=== PATIENT | male | born 1970 | race Caucasian/White ===

== ENCOUNTER 2021-08-02 09:56 | Inpatient (IN) | payer OTHER, SELFPAY ==
[2021-08-02] VITALS (15 sets, daily range): BP systolic 141–258; BP diastolic 96–164; PULSE 69–107; RESP 16–20; TEMP 36–36.9; O2SAT 97–99; BMI 24.9; BMI 23.9
--- NOTE | 2021-08-02 10:36 | EKG12_ITS ---
Test Reason : Blood Pressure : / mmHG Vent. Rate : 100 BPM Atrial Rate : 100 BPM P-R Int : 172 ms QRS Dur : 090 ms QT Int : 392 ms P-R-T Axes : 045 030 110 degrees QTc Int : 505 ms Normal sinus rhythm Left ventricular hypertrophy with repolarization abnormality Prolonged QT Abnormal ECG Confirmed by VIPUL PHILLIPS, SEPIDEH ([id number]), international editorial producer JOVANY JACOBS ([id number]) on 08/04/2021 9:22:35 AM Referred By: LISET Confirmed By:SEPIDEH MATTHEW MD
--- NOTE | 2021-08-02 10:37 | EX.ED.DYSGE1 ---
HPI History of Present Illness Chief Complaint: Med Refill Informant: patient Narrative Narrative: Male with no known medical history but recent diagnosis of hypertension from urgent care as well as tobacco abuse presenting for medication refill. Patient states in June she saw urgent care for dyspnea on exertion. At that time he was given antibiotics, steroids and started on lisinopril. He ran out of the lisinopril 2 weeks ago and has been trying to get into a primary care doctor. Does not have insurance and he is facing difficulties with this. He notes that since has been off lisinopril his symptoms have returned including chest pressure when laying flat and dyspnea on exertion. He denies any swelling of his legs. He does note decreased urination since being off of the lisinopril. He denies any chest pain at this time. He denies any change in his bowel habits. No black or blood in his stool. Never had a cardiac evaluation before. No other complaints at this time. PFSH PFSH Medical History Hypertension Smoker Home Medications lisinopril 10 mg PO DAILY 08/02/21 [History Last Taken 07/12/21] Allergy/AdvReac Type Severity Reaction Status Date / Time No Known Allergies Allergy Verified 08/02/21 10:02 Social History Smoking Status: Current every day smoker tobacco type: cigarettes ROS ROS ED Constitutional Constitutional ED: Reports weight loss; Denies chills or fever(s) Eyes Eyes: Denies change in vision ENT ENT ED: Denies rhinorrhea or sore throat Cardiovascular Cardiovascular: Reports chest pain; Denies palpitations Respiratory/Chest Respiratory/Chest: Reports dyspnea and dyspnea on exertion; Denies cough Gastrointestinal Gastrointestinal: Denies abdominal pain, nausea or vomiting Genitourinary Genitourinary ED: Denies dysuria or hematuria Musculoskeletal Musculoskeletal: Denies arthralgias or myalgias Integumentary Denies rash Neurologic Neurologic: Denies headache(s), paresthesias or weakness Psychiatric Psychiatric: Denies depression EXAM Physical Exam Const Vital Signs: 08/02/21 09:58 08/02/21 10:12 08/02/21 11:03 Temperature 96.8 F L Temperature Source Temporal Pulse Rate 107 H 76 Respiratory Rate 16 16 Respiratory Effort Normal Respiratory Pattern Normal Blood Pressure 258/164 H 214/136 H Blood Pressure Mean 195 162 Pulse Ox 97 99 Oxygen Delivery Method Room Air Room Air 08/02/21 11:45 08/02/21 12:24 Temperature Temperature Source Pulse Rate 69 71 Respiratory Rate 16 Respiratory Effort Respiratory Pattern Blood Pressure 218/146 H 207/138 H Blood Pressure Mean 170 161 Pulse Ox 98 Oxygen Delivery Method Positive well nourished and well developed General Appearance ED: well developed, NAD and pallor HEENT Reports moist mucous membranes Negative for trauma Eyes PERRL and EOMs intact bilaterally Neck supple Chest Wall inspection of chest normal Resp normal respiratory effort and clear to auscultation bilaterally Auscultation: Negative for rales, rhonchi or wheezes Cardio regular rhythm and no murmurs Rate: tachycardic GI normal to inspection, nondistended, normoactive bowel sounds and non-tender Palpation: soft Extremity normal to inspection Extremity Narrative: 2+ PT pulses General Extremety ED: Negative for edema or tenderness General Extremity: Negative for edema Neuro oriented x3 and CN's II-XII intact bilaterally Sensorium / Orientation: alert Motor Exam: strength 5/5 throughout Psych mental status grossly normal Skin no rashes or lesions noted General Skin Exam: pallor MDM MDM MDM Narrative Medical decision making narrative: Patient evaluated for dyspnea on exertion and orthopnea. He is significantly hypertensive upon arrival. He is not having any chest pain at this time. He has been off of lisinopril for the past 2 weeks. Patient has abnormal EKG however there is no prior to compare to. Lab work is remarkable for hemoglobin 11.4 with a microcytic anemia. Patient denies any black or blood in the stool. He is not on any thinners. He also has an elevated creatinine of 2.27. Is not clear what his baseline is. His troponin is 147 and his BNP is 905. Chest x-ray shows cardiomegaly and hyperinflation. Patient is not requiring oxygen. He is given 2 doses of 10 mg IV labetalol with gradual improvement of his blood pressure. Goal is to lower the blood pressure no more than 25%. Patient is given aspirin in the ER. He does not have any active chest pain. Case is discussed with cardiology on-call, Dr. Peace, who agrees with admission for further evaluation of his hypertension and elevated BNP but does not think this is an NSTEMI. Feels that the elevated troponin is secondary to the blood pressure more than anything. Recommend starting the patient on 10 mg Norvasc and 50 mg twice daily metoprolol for further blood pressure control. Given the patient is mentating appropriately and blood pressure is improving I feel that he is stable for the PCU and does not require the ICU at this time. Patient is agreeable with this plan of care. He is admitted in stable condition. Lab Data Attestation: I reviewed the patient's lab results. Labs: Laboratory Results - last 24 hr 08/02/21 08/02/21 08/02/21 10:46 10:46 10:46 WBC 11.0 RBC 4.32 L Hgb 11.4 L Hct 33.2 L MCV 76.9 L MCH 26.4 L MCHC 34.3 RDW Std Deviation 41.4 RDW Coeff of Hans 15.1 H Plt Count 152 MPV 9.8 Immature Gran % (Auto) 0.400 Neut % (Auto) 84.2 H Lymph % (Auto) 8.0 L [place] % (Auto) 6.0 Eos % (Auto) 1.0 Baso % (Auto) 0.4 Absolute Neuts (auto) 9.3 H Absolute Lymphs (auto) 0.88 Nucleated RBC % 0 Sodium 134 L Potassium 3.1 L Chloride 100 Carbon Dioxide 27.0 Anion Gap 7 BUN 48 H Creatinine 2.27 H Estim Creat Clear Calc 31.87 Est GFR (MDRD) Af Amer 39 L Est GFR (MDRD) Non-Af 32 L BUN/Creatinine Ratio 21.1 H Glucose 105 Calcium 8.7 Troponin I High Sens 147 H* B-Natriuretic Peptide 904.8 H Radiography Chest X-Ray - ED: 1 View, Read by ED Physician, Read by Radiologist and Cardiomegaly Diagnostic Testing: Clinical Impression(s) from Imaging Studies Chest X-Ray 08/02/21 10:41 IMPRESSION: Hyperinflation. Findings suggestive of bibasilar scarring. Mild cardiomegaly. Electronically Signed: Leonel Mcneal MD at 10:57 EDT , Rhythm Strip Rhythm Strip: Sinus Rhythm Rate: 100 Ectopy: None EKG Initial EKG: Attestation: I personally reviewed and interpreted this EKG as follows: Interpretation: Sinus Rhythm Comments: Normal sinus rhythm at a rate of 100 Normal axis Normal NV and QRS intervals QTC prolonged at 505 LVH with repolarization abnormalities present T wave inversions in lateral leads No prior EKG available for comparison Discharge Plan Dx/Rx/DC Orders Clinical Impression: Hypertensive emergency, Elevated troponin, FELI (acute kidney injury) Disposition Disposition: Acute Care Hospital [facility]
--- NOTE | 2021-08-02 10:41 | RAD_ITS ---
STUDY: X-RAY CHEST REASON FOR EXAM: Male, 50 years old. Sob TECHNIQUE: Single AP portable view of the chest. COMPARISON: None. FINDINGS: EKG electrodes are seen. Hyperinflation. Increased markings at the lung bases suggestive of bibasilar scarring. There is no demonstrated pleural abnormality. There is mild cardiac enlargement. Normal mediastinum and soo. Normal visualized pulmonary arteries. There is atherosclerotic tortuosity of the aortic arch and descending thoracic aorta. There are diffuse degenerative changes of the visualized thoracic spine. Normal visualized ribs, clavicles, and shoulders. There is no demonstrated abnormality of the visualized soft tissue structures of the upper abdomen. RAD/Chest 1 View (Portable) IMPRESSION: Hyperinflation. Findings suggestive of bibasilar scarring. Mild cardiomegaly. Electronically Signed: Leonel Mcneal MD at 10:57 EDT ,
[2021-08-02] MEDS: Labetalol (Prefilled) 20 MG/4 ML 10 MG IV ×2 (10:58→11:46)
[2021-08-02 11:07] LABS: Absolute Lymphocyte Count 0.88 X10^3/uL (0.83-4.51); Absolute Neutrophil Count 9.3 X10^3/uL (2.0-7.7); Basophil# 0.04 X10^3/uL; Basophil% 0.4 % (0-1); Eosinophil# 0.11 X10^3/uL; Hematocrit 33.2 % (40-54); Hemoglobin 11.4 g/dL (13.0-16.5); Lymphocyte # 0.88 X10^3/ul (0.83-4.51); Mean Corp Hgb Conc 34.3 g/dL (32-36); Mean Corpuscular Hgb 26.4 pg (27.0-32.0); Mean Corpuscular Volume 76.9 fL (80-94); Mean Platelet Vol. 9.8 fl (6.2-12.0); Monocyte# 0.66 X10^3/uL; NRBC Flagged by Analyzer 0 % (0-5); Neutrophil # 9.31 X10^3/uL (2.7-7.7); Neutrophil % 84.2 % (47-70); Platelet Count 152 K/mm3 (150-450); RBC Distribution Width CV 15.1 % (11.6-14.6); RBC Distribution Width SD 41.4 fl (35.1-43.9); Red Blood Count 4.32 M/mm3 (4.6-6.2)
[2021-08-02 11:33] LABS: Anion Gap 7 (5-15); BUN 48 mg/dL (7-18); BUN/Creat Ratio 21.1 RATIO (10-20); Calcium,Total 8.7 mg/dL (8.5-10.1); Chloride 100 mmol/L (98-107); Creatinine, Serum 2.27 mg/dL (0.70-1.30); EST Glomerular Filtration Rate 32 mL/min (>60); Est Glom Filt Rate - Afr Amer 39 mL/min (>60); Estimated Creatinine Clearance 31.87 ml/min; Glucose 105 mg/dL (74-106); Potassium 3.1 mmol/L (3.5-5.1); Sodium Level 134 mmol/L (136-145); Troponin-I HS 147 pg/mL (3.0-78.0)
[2021-08-02 11:34] LABS: BNP,B-Type NATRIURETIC PEPTIDE 904.8 pg/mL (0-100)
[2021-08-02] MEDS: Aspirin 325 MG Tablet PO (11:51)
[2021-08-02] MEDS: 0.9% Normal Saline 1,000 ML 150 ML IV (12:14)
--- NOTE | 2021-08-02 12:21 | HP.PCM.HOS_ITS ---
HPI - General HPI Narrative INDY BARGER, is a 50 M with a PMH of hypertension who presents via the ED for medication refill. He started having shortness of breath some months ago, and went to an urgent care. He was given lisinopril and some steroids and says his shortness of breath improved. He run out of lisinopril and says his shortness of breath recurred, and he also had orthopnea, so he decided to come in to the ED for medication refill. He denied any chest pain, palpitations, dizziness, abdominal pain, nausea, vomiting or diarrhea. He hasnt seen a physician in ~ 20 years ago. Review of systems is otherwise negative. Vitals in [facility] ED were bp of 214/136, CO of 76, RR of 16 and he was saturating at 99% on room air. CBC showed Hb of 11.4, wbc of 11 and platelets of 152. Chemistry showed sodium of 134, potassium of 3.1 and Cr of 2.27; no baseline known. Initial troponin was 147 and BNP was 904.8. EKG showed evidence of LVH. He is being admitted to be managed for hypertensive urgency. He was given IV labetalol in the ED, and started on PO amlodipine and PO metoprolol per cardiology recommendations. [facility] Medical History Hypertension Home Medications lisinopril 10 mg PO DAILY 08/02/21 [History Last Taken Unknown] Allergy/AdvReac Type Severity Reaction Status Date / Time No Known Allergies Allergy Verified 08/02/21 10:02 Social History Smoking Status: Current every day smoker tobacco type: cigarettes ROS Constitutional Constitutional: Denies change in weight, chills, fatigue, fever(s), malaise, weakness or other Eyes Eyes: Denies change in vision or double vision ENT HEENT: Denies headache(s) Cardiovascular Cardiovascular: Reports dyspnea on exertion, orthopnea and paroxysmal nocturnal dyspnea; Denies chest pain, edema, lightheadedness, palpitations, rapid heart rate or syncope Respiratory/Chest Respiratory/Chest: Reports dyspnea, shortness of breath at rest and shortness of breath with exertion; Denies cough, hemoptysis or wheezing Gastrointestinal Gastrointestinal: Denies abdominal pain, constipation, nausea or vomiting Genitourinary Genitourinary: Denies burning urination or dysuria Neurologic Neurologic: Denies confusion, focal weakness, headache(s), seizure-like activity or syncope Vital Signs Vital Signs Vital Signs: 08/02/21 09:58 08/02/21 10:12 08/02/21 11:03 Temperature 96.8 F L Temperature Source Temporal Pulse Rate 107 H 76 Respiratory Rate 16 16 Respiratory Effort Normal Respiratory Pattern Normal Blood Pressure 258/164 H 214/136 H Blood Pressure Mean 195 162 Pulse Ox 97 99 Oxygen Delivery Method Room Air Room Air Weight Weight: 145 lb Body Mass Index (BMI) 24.9 Physical Exam Const alert, oriented x3 and no apparent distress General Appearance: cooperative HEENT normocephalic, hearing grossly normal bilaterally and moist oral mucous membranes Eyes PERRL, EOMs intact bilaterally and conjunctivae normal Neck no lymphadenopathy, supple and no JVD Resp Resp Narrative: diminished breath sounds bibasally, no wheezes or crackles. on room air Cardio regular rate, regular rhythm, S1 normal heart sound, S2 normal heart sound and no murmurs GI normal to inspection, nondistended, normoactive bowel sounds, soft to palpation and non-tender Extremity normal to inspection, full ROM and no clubbing, cyanosis or edema Peripheral Pulses: Yes pulses 2+ throughout Skin no rashes or lesions noted Neuro oriented x3, CN's II-XII intact bilaterally and moves all extremities Sensorium / Orientation: awake and alert Psych affect normal Results Lab / Micro Data Result Diagrams: 08/02/21 10:46 08/02/21 10:46 Labs: Laboratory Results - last 24 hr 08/02/21 10:46: WBC 11.0, RBC 4.32 L, Hgb 11.4 L, Hct 33.2 L, MCV 76.9 L, MCH 26.4 L, MCHC 34.3, RDW Std Deviation 41.4, RDW Coeff of Hans 15.1 H, Plt Count 152, MPV 9.8, Immature Gran % (Auto) 0.400, Neut % (Auto) 84.2 H, Lymph % (Auto) 8.0 L, [place] % (Auto) 6.0, Eos % (Auto) 1.0, Baso % (Auto) 0.4, Absolute Neuts (auto) 9.3 H, Absolute Lymphs (auto) 0.88, Nucleated RBC % 0 08/02/21 10:46: Sodium 134 L, Potassium 3.1 L, Chloride 100, Carbon Dioxide 27.0, Anion Gap 7, BUN 48 H, Creatinine 2.27 H, Estim Creat Clear Calc 31.87, Est GFR (MDRD) Af Amer 39 L, Est GFR (MDRD) Non-Af 32 L, BUN/Creatinine Ratio 21.1 H, Glucose 105, Calcium 8.7, Troponin I High Sens 147 H* 08/02/21 10:46: B-Natriuretic Peptide 904.8 H Radiology Impression Chest X-Ray 08/02/21 10:41 IMPRESSION: Hyperinflation. Findings suggestive of bibasilar scarring. Mild cardiomegaly. Electronically Signed: Leonel Mcneal MD at 10:57 EDT , Assessment & Plan Assessment/Plan (1) Hypertensive emergency: (2) Elevated troponin: (3) FELI (acute kidney injury): PLAN: #HYpertensive emergency * Blood pressure was markedly elevated on admission. Was initially 258/164 and trended down gradually to 207/138 at time of admission. * Appears patient has been hypertensive for a long time but he does not see a doctor and has not seen one for about 20 years according to him. * Was put on IV labetalol in the ED and blood pressure came down slightly. Started on p.o. amlodipine and metoprolol * BNP and troponin are both elevated which would likely be explained by the hypertensive emergency. * EKG showed evidence of left ventricular hypertrophy. * Cardiology consulted. * Admit to PCU with stepdown * IV hydralazine as needed. * 2D echo. * Check lipid panel and A1c as well. * #FELI: * Creatinine is 2.27. Baseline is not known. * Hold off on hydration with IV fluids due to markedly elevated BNP, until echo is reviewed no EF. * #Elevated troponin: * Likely due to hypertensive emergency. * EKG showed no acute ST changes and patient currently denies any chest pain. Cardiology consulted. * #Hypokalemia: Potassium is 3.1. Will replace and trend. DVT prophylaxis: Lovenox CODE STATUS: Full code * Patient counseled extensively about different types of CODE STATUS including full code, DNR CCA and DNR CCA. Patient elects to be full code. * Total [id number] time 16 minutes. Charges/Coding Visit Charges Inpatient E&M: 45066 Init Hosp L3 Procedures Hospitalists Procedures: 70113 Advncd Care Plan 30 Min
--- NOTE | 2021-08-02 12:29 | CM.ED ---
ISABEL Note: Referral Source:Case Find Referral Reason: No insurance and no PCP ISABEL met with patient and provided him with [facility] Healthcare Directory and Financial Assistance packet. No other needs identified at this time. SW remains available. Plan: Resources provided Caroline Machado
[2021-08-02] MEDS: amLODIPine 10 MG Tablet PO (12:31)
[2021-08-02] MEDS: Metoprolol Tartrate 25 MG Tablet 50 MG PO (12:39)
--- NOTE | 2021-08-02 13:21 | ECHOD_ITS ---
Reason For Study: HTN Procedure This was a 2D Doppler, Color Flow transthoracic echocardiogram. Myocardial strain analysis was performed in this exam to aid in the assessment of cardiac function. Exam performed portable in patient room. Left Ventricle Normal LV size. Severe concentric left ventricular hypertrophy. Left ventricular systolic function is lower limits of normal. The estimated ejection fraction is 45 %. Right Ventricle Normal RV size. Normal systolic function. Atria The left atrium is mildly enlarged. Normal right atrium. Mitral Valve Normal mitral valve. Tricuspid Valve Normal tricuspid valve. Aortic Valve Trisinus/trileaflet aortic valve. Mild (1+) aortic valve insufficiency. Pulmonic Valve Normal pulmonic valve. Great Vessels Mild to moderately dilated aortic root. The pulmonary artery is normal size. Normal inferior vena cava. Pericardium/Pleural No pericardial effusion. MMode/2D Measurements & Calculations LVIDd: 4.5 cm IVSd: 2.2 cm Ao root diam: 4.3 cm LVIDs: 3.5 cm LVPWd: 2.0 cm RVDd: 3.7 cm FS: 22.1 % LAV(MOD-bp): 55.7 ml LVAd ap4: 26.1 cm2 SV(MOD-sp4): 33.4 ml LAV(MOD-bp) Indexed: 32.7 ml/m2 LVLd ap4: 8.0 cm LAV(MOD-sp2): 46.3 ml EDV(MOD-sp4): 70.2 ml LAV(MOD-sp4): 65.1 ml EDV(sp4-el): 71.9 ml LVAs ap4: 15.8 cm2 LVLs ap4: 6.2 cm ESV(MOD-sp4): 36.8 ml ESV(sp4-el): 33.8 ml EF(MOD-sp4): 47.6 % EF(sp4-el): 52.9 % SV(sp4-el): 38.0 ml LA A4 area: 21.2 cm2 LA dimension(2D): 3.5 cm RA A4 area: 15.0 cm2 Doppler Measurements & Calculations MV A max ricky: 77.2 cm/sec Lat Peak E' Ricky: 3.0 cm/sec Med Peak E' Ricky: 4.3 cm/sec AI max ricky: 378.5 cm/sec LV V1 max: 136.9 cm/sec AI max P.4 mmHg LV V1 max P.5 mmHg AI dec slope: 233.4 cm/sec2 AI P1/2t: 475.0 msec ECHO/Echo Complete Interpretation Summary Normal LV size. Severe concentric left ventricular hypertrophy. Left ventricular systolic function is lower limits of normal. The estimated ejection fraction is 45 %. Mild to moderately dilated aortic root. Mild (1+) aortic valve insufficiency. Apical sparing noted cannot exclude amyloid. The global longitudinal strain is moderately abnormal. The global longitudinal strain = -12.2% (abnormal). Ordering Physician: Yolanda Armstrong Performed By: Cassi Becker RCS
[2021-08-02 13:57] LABS: Troponin-I HS 161 pg/mL (3.0-78.0)
[2021-08-02] MEDS: hydrALAZINE 20 MG/ML Vial 10 MG IV (14:05)
--- NOTE | 2021-08-02 14:19 | PCM.CONS.C ---
Assessment & Plan Assessment/Plan (1) Hypertensive emergency: PLAN: He does present with a hypertensive emergency. I would recommend that we aggressively treat his blood pressure adjusting for his impairment in renal function. His low potassium as well as the creatinine level makes me want to exclude an adrenal adenoma or renal artery stenosis. Would recommend that we obtain renin aldosterone levels Plasma metanephrines Renal ultrasound Aggressive BP management with amlodipine 10 mg a day Metoprolol 100 mg twice a day Clonidine 0.1 mg 3 times a day An echocardiogram should be performed to assess his ventricular function and look for wall thickness I have discussed with him the importance of medication compliance. (2) Elevated troponin: PLAN: He does have mildly elevated troponin but I suspect the above is secondary to the marked hypertension. May consider stress testing at some point when blood pressure is under much better control. HPI Consult Data Date of Consult: 08/02/21 HPI Narrative HPI Narrative: INDY BARGER, is a 50 M who presents with a PMH of hypertension who presents to the emergency room for medication refill. He had been having some shortness of breath over the last few months and went to an urgent care for evaluation. He was treated with lisinopril and steroids with some improvement. He apparently ran out of his lisinopril and the shortness of breath recurred. He decided to come to the emergency room for refill. He specifically denies any chest pain or palpitations dizziness abdominal discomfort nausea vomiting or diaphoresis. He has sound physicians on purpose. In the emergency room he was noted to have a markedly elevated blood pressure of 214/136 bpm with a pulse rate of 76 bpm. His laboratory tests were significant for hypokalemia, mildly elevated troponin as well as natruretic peptide level. EKG demonstrated normal sinus rhythm with left ventricle hypertrophy and repolarization changes. [facility] Medical History Hypertension Smoker Home Medications lisinopril 10 mg PO DAILY 08/02/21 [History Last Taken 07/12/21] Allergy/AdvReac Type Severity Reaction Status Date / Time No Known Allergies Allergy Verified 08/02/21 10:02 Social History Smoking Status: Current every day smoker tobacco type: cigarettes ROS Constitutional Constitutional: Denies fever(s) or weight loss Eyes Eyes: Reports systems reviewed and no addt'l complaints, except as documented ENT HEENT: Reports systems reviewed and no addt'l complaints, except as documented Cardiovascular Cardiovascular: Denies chest pain at rest, chest pain with activity, dyspnea at rest, dyspnea on exertion, edema, palpitations or paroxysmal nocturnal dyspnea Respiratory/Chest Respiratory/Chest: Reports dyspnea on exertion; Denies productive cough, shortness of breath at rest or shortness of breath with exertion Gastrointestinal Gastrointestinal: Denies change in bowel habits, nausea, vomiting or weight changes Genitourinary Genitourinary: Denies difficulty urinating Musculoskeletal Musculoskeletal: Denies joint stiffness or muscle weakness Integumentary Integumentary: Denies lesions Neurologic Neurologic: Denies dizziness or syncope Psychiatric Psychiatric: Denies anxiety Endocrine Endocrinology: Denies excessive sweating or fatigue Hematologic/Lymphatic Hematologic/Lymphatic: Denies anemia Allergic/Immunologic Allergic/Immunologic: Denies seasonal rhinorrhea Physical Exam Const alert, oriented x3 and no apparent distress General Appearance: cooperative HEENT hearing grossly normal bilaterally Head and Scalp: atraumatic Eyes EOMs intact bilaterally Neck General: normal visual inspection Chest inspection of chest normal and palpation of chest normal Resp normal respiratory effort Auscultation: clear to auscultation bilaterally Cardio regular rate, regular rhythm, S1 normal heart sound and S2 normal heart sound Jugular Venous Distention: JVD GI normal to inspection, nondistended, normoactive bowel sounds Extremity normal capillary refill and no pedal edema Peripheral Pulses: Yes pulses 2+ throughout and femoral pulses present Skin no rashes or lesions noted Neuro oriented x3 and CN's II-XII intact bilaterally Psych Appearance: grossly normal and appropriate Risk Stratification Risk Stratification Applicable: No Objective Data Vital Signs: Vital Signs Temp Pulse Resp BP Pulse Ox 97.2 F L 82 20 H 210/156 H 97 08/02/21 13:10 08/02/21 14:05 08/02/21 13:10 08/02/21 14:05 08/02/21 13:10 Oxygen Delivery Method Room Air Weight: 139 lb 8.842 oz Body Mass Index (BMI) 23.9 Lab / Micro Data Result Diagrams: 08/02/21 10:46 08/02/21 10:46 Labs: Laboratory Results - last 24 hr 08/02/21 10:46: WBC 11.0, RBC 4.32 L, Hgb 11.4 L, Hct 33.2 L, MCV 76.9 L, MCH 26.4 L, MCHC 34.3, RDW Std Deviation 41.4, RDW Coeff of Hans 15.1 H, Plt Count 152, MPV 9.8, Immature Gran % (Auto) 0.400, Neut % (Auto) 84.2 H, Lymph % (Auto) 8.0 L, [place] % (Auto) 6.0, Eos % (Auto) 1.0, Baso % (Auto) 0.4, Absolute Neuts (auto) 9.3 H, Absolute Lymphs (auto) 0.88, Nucleated RBC % 0 08/02/21 10:46: Sodium 134 L, Potassium 3.1 L, Chloride 100, Carbon Dioxide 27.0, Anion Gap 7, BUN 48 H, Creatinine 2.27 H, Estim Creat Clear Calc 31.87, Est GFR (MDRD) Af Amer 39 L, Est GFR (MDRD) Non-Af 32 L, BUN/Creatinine Ratio 21.1 H, Glucose 105, Calcium 8.7, Troponin I High Sens 147 H* 08/02/21 10:46: B-Natriuretic Peptide 904.8 H 08/02/21 13:26: Troponin I High Sens 161 H* Rhythm Strip Rhythm Strip: Sinus Rhythm Rate: 100 Ectopy: None Cardiology Labs/Tests 08/02/21 10:46: WBC 11.0, RBC 4.32 L, Hgb 11.4 L, Hct 33.2 L, MCV 76.9 L, MCH 26.4 L, MCHC 34.3, Plt Count 152, MPV 9.8, Immature Gran % (Auto) 0.400, Neut % (Auto) 84.2 H, Lymph % (Auto) 8.0 L, [place] % (Auto) 6.0, Eos % (Auto) 1.0, Baso % (Auto) 0.4, Absolute Neuts (auto) 9.3 H, Nucleated RBC % 0 08/02/21 10:46: Sodium 134 L, Potassium 3.1 L, Chloride 100, Carbon Dioxide 27.0, Anion Gap 7, BUN 48 H, Creatinine 2.27 H, Est GFR (MDRD) Af Amer 39 L, Est GFR (MDRD) Non-Af 32 L, BUN/Creatinine Ratio 21.1 H, Glucose 105, Calcium 8.7 08/02/21 10:46: B-Natriuretic Peptide 904.8 H Rhythm: EKG: ECHO: Stress Test: Cardiac Cath: PCI: CT Surgery: Holter monitor: EPS: PPM: CXR: Chest CT Scan: Radiography Diagnostic Testing: Radiology Impression Chest X-Ray 08/02/21 10:41 IMPRESSION: Hyperinflation. Findings suggestive of bibasilar scarring. Mild cardiomegaly. Electronically Signed: Leonel Mcneal MD at 10:57 EDT ,
[2021-08-02] MEDS: cloNIDine HCl 0.1 MG Tablet PO ×2 (15:18→22:24)
[2021-08-02 17:58] LABS: Troponin-I HS 180 pg/mL (3.0-78.0)
[2021-08-02] MEDS: Potassium Chloride Oral Tablet 20 MEQ 60 MEQ PO (18:45)
--- NOTE | 2021-08-02 18:54 | NURSING ---
Reviewed charting with Araceli Pastor RN
[2021-08-02] MEDS: Metoprolol Tartrate 100 MG Tablet PO (22:24)
[2021-08-03] VITALS (7 sets, daily range): BP systolic 143–144; BP diastolic 97–108; PULSE 61–65; RESP 18; TEMP 36.4–36.6; O2SAT 97–99
[2021-08-03] MEDS: cloNIDine HCl 0.1 MG Tablet PO (05:11)
[2021-08-03 05:39] LABS: Absolute Lymphocyte Count 0.67 X10^3/uL (0.83-4.51); Absolute Neutrophil Count 5.4 X10^3/uL (2.0-7.7); Basophil# 0.03 X10^3/uL; Basophil% 0.4 % (0-1); Eosinophils% 1.5 % (0-5); Hematocrit 31.3 % (40-54); Hemoglobin 10.1 g/dL (13.0-16.5); Lymphocyte # 0.67 X10^3/ul (0.83-4.51); Mean Corp Hgb Conc 32.3 g/dL (32-36); Mean Corpuscular Hgb 25.6 pg (27.0-32.0); Mean Corpuscular Volume 79.4 fL (80-94); Mean Platelet Vol. 10.7 fl (6.2-12.0); Monocyte# 0.48 X10^3/uL; Monocyte% 7.1 % (0-10); NRBC Flagged by Analyzer 0 % (0-5); Neutrophil # 5.43 X10^3/uL (2.7-7.7); Neutrophil % 80.7 % (47-70); Platelet Count 127 K/mm3 (150-450); RBC Distribution Width CV 15.8 % (11.6-14.6); RBC Distribution Width SD 45.4 fl (35.1-43.9); Red Blood Count 3.94 M/mm3 (4.6-6.2); White Blood Count 6.7 K/mm3 (4.4-11.0)
[2021-08-03 06:00] LABS: Anion Gap 7 (5-15); BUN 39 mg/dL (7-18); BUN/Creat Ratio 19.1 RATIO (10-20); Calcium,Total 8.2 mg/dL (8.5-10.1); Chloride 101 mmol/L (98-107); Creatinine, Serum 2.04 mg/dL (0.70-1.30); EST Glomerular Filtration Rate 37 mL/min (>60); Est Glom Filt Rate - Afr Amer 44 mL/min (>60); Estimated Creatinine Clearance 35.47 ml/min; Glucose 93 mg/dL (74-106); Potassium 4.2 mmol/L (3.5-5.1); Sodium Level 133 mmol/L (136-145)
--- NOTE | 2021-08-03 07:03 | NM_ITS ---
EXAM: NM Myocardial pyrophosphate CLINICAL INDICATION: amyloidosis -- HYPERTENSIVE EMERGENCY TECHNIQUE: Nuclear medicine myocardial planar with 21.6 mCi PYP. This report was created using [employer] report generation technology. COMPARISON: None. FINDINGS: Activity of the heart region of interest measures 45.55 with second region of interest over the contralateral chest measuring 38.51 (1.22 ratio). NM/[employer] Images Cardiac Amyloid IMPRESSION: 1. Heart:contralateral chest ratio 1.2 does NOT meet criteria for cardiac amyloidosis. Electronically Signed: Devonte Christopher MD (Brooks) at 12:17 EDT Reading Location ID and State: [facility] / [place] , Service support ,
[2021-08-03] MEDS: Enoxaparin 40 MG/0.4 ML Syringe SC (09:13)
[2021-08-03] MEDS: amLODIPine 10 MG Tablet PO (09:13)
[2021-08-03] MEDS: Metoprolol Tartrate 100 MG Tablet PO (09:13)
--- NOTE | 2021-08-03 11:10 | CASEMGMT ---
RN CM Face to Face with patient for initial transition planning/care coordination assessment. RN CM introduced self and role at [facility]. Patient lying in bed, alert and oriented. Patient willing to participate in assessment and is able to answer all questions appropriately. Care providers, pharmacy, and demographics verified. Patient wishes to discharge home, denies need for home health at this time. Patient states he has no further needs or concerns at this time. CM to follow for discharge planning needs that may arise. PCP: No PCP, patient provided list in ED Specialists: none Preferred Pharmacy: [facility] retail at discharge Insurance: none Prescription Benefit: None Living Will/HPOA: none LNOK: brother Living Arrangements: Patient lives in a second floor apartment. Patient states he is independent and able to ambulate stairs. Transportation: self, brother DME/HHC: Patient denies DME or previous HHC. Patient smokes 1 PPD of cigarette and declines resources at this time. Disposition Plan: Patient to discharge home with follow-up plans in place. Lucero [place], RN, CM
--- NOTE | 2021-08-03 12:56 | NURSING ---
Pt stated that he had things at home that he needed to take care of and wanted to leave. This RN talked to Dr. Armstrong who was uncomfortable with discharging patient today and wanted to keep patient overnight. Pt stated that he could not stay and wanted to leave. Pt aware that he would be leaving against medical advice. Pt signed AMA paperwork. IV was removed and pt ambulated to discharge with all belongings. notified.
--- NOTE | 2021-08-03 13:38 | DS.PCM_ITS ---
Providers Date of Admission: 08/02/21 Primary Care Physician: Evelyn Primary Care Phys Consultations 08/02/21 13:21 Consult: Cardiology Routine Consulting Provider: Pablo Peace Reason for Consult: hypertensive urgency EMERGENT Consult: No MD Notified: Yes Date Notified: 08/02/21 Time Notified: 12:40 Method of Notification: Text Reason For Visit: HYPERTENSIVE EMERGENCY Diagnosis Discharge Diagnosis (1) Hypertensive emergency: Status: Acute Code(s): I16.1 - Hypertensive emergency (2) Elevated troponin: Status: Acute Code(s): R77.8 - Other specified abnormalities of plasma proteins Medications at Discharge Home Medications amlodipine 10 mg PO DAILY #30 tab 08/03/21 metoprolol tartrate 100 mg PO BID #60 tab 08/03/21 Hospital Course Operations None Procedures 2-D Echocardiogram Summary of Care Provided Minutes Spent on Discharge: 45 Hospital Course: INDY BARGER, is a 50 M with a PMH of hypertension who presents via the ED for medication refill. He started having shortness of breath some months ago, and went to an urgent care. He was given lisinopril and some steroids and says his shortness of breath improved. He run out of lisinopril and says his shortness of breath recurred, and he also had orthopnea, so he decided to come in to the ED for medication refill. He denied any chest pain, palpitations, dizziness, abdominal pain, nausea, vomiting or diarrhea. He hasnt seen a physician in ~ 20 years ago. Review of systems is otherwise negative. Vitals in [facility] ED were bp of 214/136, NM of 76, RR of 16 and he was saturating at 99% on room air. CBC showed Hb of 11.4, wbc of 11 and platelets of 152. [employer] Equipment [employer] ry showed sodium of 134, potassium of 3.1 and Cr of 2.27; no baseline known. Initial troponin was 147 and BNP was 904.8. EKG showed evidence of LVH. He is being admitted to be managed for hypertensive urgency. He was given IV labetalol in the ED, and started on PO amlodipine and PO metoprolol per cardiology recommendations. He had 2D echo which showed severe left ventricular hypertrophy, with EF of 45%. Cardiology was consulted and was concerned about renal artery stenosis or adrenal adenoma, so plasma metanephrines, and renin aldosterone levels were ordered. Clonidine was also added on. Cardiology also considered possible cardiac amyloidosis and he had a nuclear cardiac scan which showed he didnt meet the criteria for amyloidosis. Cr trended down to 2.04. Patient was counseled to stay another day to ensure his kidney function also improved some more and for renal artery duplex USG to be done. Patient however refused and despite counseling, insisted on signing out AGAINST MEDICAL ADVICE. Prescription for p.o. amlodipine and metoprolol was sent to his pharmacy on file. Patient was seen and examined prior to discharge. He had no active complaints and said he felt better. Review of systems otherwise negative. Labs and vitals reviewed. Physical Exam Const alert, oriented x3 and no apparent distress General Appearance: cooperative Orientation / Consciousness: awake Exam Limitations: no limitations HEENT normocephalic, head/scalp atraumatic, hearing grossly normal bilaterally and moist oral mucous membranes Eyes PERRL, EOMs intact bilaterally and conjunctivae normal Neck no lymphadenopathy, supple and no JVD Resp Resp Narrative: diminished breath sounds bibasally, no wheezes or crackles. on room air Cardio regular rate, regular rhythm, S1 normal heart sound, S2 normal heart sound and no murmurs GI normal to inspection, nondistended, normoactive bowel sounds, soft to palpation and non-tender Extremity normal to inspection, full ROM and no clubbing, cyanosis or edema Skin no rashes or lesions noted Neuro oriented x3, CN's II-XII intact bilaterally and moves all extremities Sensorium / Orientation: awake and alert Psych affect normal Weight / BMI Weight Weight: 139 lb 8.842 oz Body Mass Index (BMI) 23.9 ABG / Lab / Microbiology Data Result Diagrams: 08/03/21 04:33 08/03/21 04:33 Laboratory: Laboratory Results - last 24 hr 08/02/21 13:26: Troponin I High Sens 161 H* 08/02/21 17:00: Troponin I High Sens 180 H* 08/03/21 04:33: WBC 6.7, RBC 3.94 L, Hgb 10.1 L, Hct 31.3 L, MCV 79.4 L, MCH 25.6 L, MCHC 32.3 D, RDW Std Deviation 45.4 H, RDW Coeff of Hans 15.8 H, Plt Count 127 L, MPV 10.7, Immature Gran % (Auto) 0.300, Neut % (Auto) 80.7 H, Lymph % (Auto) 10.0 L, [place] % (Auto) 7.1, Eos % (Auto) 1.5, Baso % (Auto) 0.4, Absolute Neuts (auto) 5.4, Absolute Lymphs (auto) 0.67 L, Nucleated RBC % 0 08/03/21 04:33: Sodium 133 L, Potassium 4.2, Chloride 101, Carbon Dioxide 25.0, Anion Gap 7, BUN 39 H, Creatinine 2.04 H, Estim Creat Clear Calc 35.47, Est GFR (MDRD) Af Amer 44 L, Est GFR (MDRD) Non-Af 37 L, BUN/Creatinine Ratio 19.1, Glucose 93, Calcium 8.2 L Radiography Diagnostic Testing: Radiology Impression Echocardiogram 08/02/21 13:21 Interpretation Summary Normal LV size. Severe concentric left ventricular hypertrophy. Left ventricular systolic function is lower limits of normal. The estimated ejection fraction is 45 %. Mild to moderately dilated aortic root. Mild (1+) aortic valve insufficiency. Apical sparing noted cannot exclude amyloid. The global longitudinal strain is moderately abnormal. The global longitudinal strain = -12.2% (abnormal). Ordering Physician: Yolanda Armstrong Performed By: Cassi Becker RCS Planar Scan-Cardiac Nuclear Med 08/03/21 07:03 IMPRESSION: 1. Heart:contralateral chest ratio 1.2 does NOT meet criteria for cardiac amyloidosis. Electronically Signed: Devonte Christopher MD (Brooks) at 12:17 EDT Reading Location ID and State: [facility] / [place] , Service support , D/C Instructions Discharge Diet: Low fat / Low cholesterol Discharge Activity: Return to Normal Activity Weight Bearing Status: Weight bearing as tolerated Call your doctor if you observe: Fever of 101 or Higher, Shortness of breath, Dizziness, Swelling in the ankles, Chest pain and Increased palpitations (irregular heartbeat) Meaningful Use Info Meaningful Use Diagnoses (Choose all that apply): None applicable Discharge Plan Admission Admit Date/Time: 08/02/21 12:37 Primary Reason for Your Visit: hypertensive emergency Attending Provider: Yolanda Armstrong Primary Care Provider: Care Physician,No Primary Consulting Providers: Pablo Peace Discharge Orders/Prescriptions Prescriptions: New metoprolol tartrate 100 mg Tablet 100 mg PO BID Qty: 60 RF: 2 amlodipine 10 mg Tablet 10 mg PO DAILY Qty: 30 RF: 2 Discontinued lisinopril 10 mg tablet 10 mg PO DAILY RF: 0 Referrals / Follow Up: Care Physician,No Primary [Primary Care Provider] - Disposition Disposition (needs filled in before D/C Order can be placed): Against Medical Advice Charges/Coding Visit Charges Inpatient E&M: 11150 Disch Hosp
== END 2021-08-03 12:56 | disposition left against medical advice (07) | DRG 305 ==
LOC: ED 12:27 → PCU 12:47
PROVIDERS: Internal Medicine Cardiovascular Disease; Admitting Provider Student in an Organized Health Care Education/Training Program; Emergency Provider Emergency Medicine; Visit Provider Student in an Organized Health Care Education/Training Program
DX: I16.1 Hypertensive emergency (principal); N17.9 Acute kidney failure, unspecified; F17.210 Nicotine dependence, cigarettes, uncomplicated; I10 Essential (primary) hypertension; E87.6 Hypokalemia; Z79.899 Other long term (current) drug therapy; R79.89 Other specified abnormal findings of blood chemistry; Z53.29 Procedure and treatment not carried out because of patient's decision for other reasons
CPT/HCPCS: 36415; 71045; 78800; 78803; 80048; 82088; 83880; 84244; 84484; 85025; 93005; 93306; 99284; 99406; A9538; J7030; A4216